=== PATIENT | male | born 1980 | race American Indian/Alaskan Native ===

== ENCOUNTER 2019-01-09 17:52 | Emergency (ER) | payer OTHER ==
--- NOTE | 2019-01-09 18:23 | Emergency Department Report ---
Blank Doc - Documentation Documentation: This is a 38-year-old male that presents with right eye pain and irritation. This initial assessment/diagnostic orders/clinical plan/treatment(s) is/are subject to change based on patient's health status, clinical progression and re- assessment by fellow clinical providers in the ED. Further treatment and workup at subsequent clinical providers discretion. Patient/guardians urged not to elope from the ED as their condition may be serious if not clinically assessed and managed. Initial orders include: 1- Patient sent to [facility] for further evaluation and treatment 2- visual acuity 3- he lamp/tonopen
[2019-01-09 18:24] VITALS: BP 114/67
--- NOTE | 2019-01-09 21:10 | Emergency Department Report ---
ED General Adult HPI - General Chief complaint: Eye Problems Stated complaint: R EYE PAIN Time Seen by Provider: 01/09/19 18:20 Source: patient Mode of arrival: Ambulatory Limitations: No Limitations - History of Present Illness Initial comments: Patient is a 38-year-old AA male with no past medical history presents to the ED, no acute onset persistent painful swollen nontraumatic right medial eyelids for the last 5 days. Patient states that in the last 2 days the swelling and pain have worsened, and now has purulent discharge. Patient denies change in vision, dizziness, headache, nausea, vomiting, traumatic injury, nasal and sinus congestion, fever, chills, cough or sore throat. MD Complaint: right eyelid pain and swelling -: Sudden, days(s) (5) Location: eyes (RIGHT EYELIDS) Radiation: non-radiation Severity scale (0 -10): 5 Quality: burning, aching, sharp Consistency: constant Improves with: none Worsens with: none Associated Symptoms: denies other symptoms, rash (right eyelids). denies: confusion, chest pain, diaphoresis, fever/chills, headaches, loss of appetite, nausea/vomiting, shortness of breath, syncope, weakness Treatments Prior to Arrival: none - Related Data Previous Rx's Medication Instructions Recorded Last Taken Type Ibuprofen [Motrin] 800 mg PO Q8HR PRN #20 tablet 01/09/19 Unknown Rx Sulfamethoxazole/Trimethoprim 1 each PO Q12H #20 tablet 01/09/19 Unknown Rx [Bactrim DS TAB] Allergies Allergy/AdvReac Type Severity Reaction Status Date / Time No Known Allergies Allergy Unverified 01/09/19 17:53 ED Review of Systems ROS: Stated complaint: R EYE PAIN Other details as noted in HPI Constitutional: denies: chills, fever Eyes: eye pain (right), other (swollen painful rash on right eyelids). denies: eye discharge, vision change ENT: denies: ear pain, throat pain Respiratory: denies: cough, shortness of breath, wheezing Cardiovascular: denies: chest pain, palpitations Endocrine: no symptoms reported Gastrointestinal: denies: abdominal pain, nausea, diarrhea Genitourinary: denies: urgency, dysuria Musculoskeletal: denies: back pain, joint swelling, arthralgia Skin: rash (erythematous swollen painful rash on right eyelids medially), change in color (mildly erythematous rash on right eyelids). denies: lesions Neurological: denies: headache, weakness, paresthesias Psychiatric: denies: anxiety, depression Hematological/Lymphatic: denies: easy bleeding, easy bruising ED Past Medical Hx - Past Medical History Previous Medical History?: No Hx Hypertension: No - Surgical History Past Surgical History?: No - Social History Smoking Status: Current Every Day Smoker Substance Use Type: None - Medications Home Medications: Home Medications Medication Instructions Recorded Confirmed Last Taken Type Ibuprofen [Motrin] 800 mg PO Q8HR PRN #20 tablet 01/09/19 Unknown Rx Sulfamethoxazole/Trimethoprim 1 each PO Q12H #20 tablet 01/09/19 Unknown Rx [Bactrim DS TAB] ED Physical Exam - General Limitations: No Limitations General appearance: alert, in no apparent distress - Head Head exam: Present: atraumatic, normocephalic, normal inspection - Eye Eye exam: Present: normal appearance, PERRL, EOMI, other (swollen mildly erythematous tender right medial eyelids). Absent: periorbital swelling, periorbital tenderness Pupils: Present: normal accommodation - ENT ENT exam: Present: normal exam, normal orophraynx, mucous membranes moist, TM's normal bilaterally, normal external ear exam - Neck Neck exam: Present: normal inspection, full ROM. Absent: tenderness - Respiratory Respiratory exam: Present: normal lung sounds bilaterally. Absent: respiratory distress, wheezes, rales, stridor, chest wall tenderness, accessory muscle use - Cardiovascular Cardiovascular Exam: Present: regular rate, normal rhythm, normal heart sounds. Absent: systolic murmur, diastolic murmur, rubs, gallop - GI/Abdominal GI/Abdominal exam: Present: soft, normal bowel sounds. Absent: guarding, rebound, hyperactive bowel sounds, hypoactive bowel sounds, organomegaly, mass, bruit - Rectal Rectal exam: Present: deferred - Extremities Exam Extremities exam: Present: normal inspection, full ROM, normal capillary refill. Absent: pedal edema, joint swelling - Back Exam Back exam: Present: normal inspection, full ROM. Absent: CVA tenderness (L), muscle spasm, paraspinal tenderness, vertebral tenderness - Neurological Exam Neurological exam: Present: alert, oriented X3, CN II-XII intact, normal gait - Psychiatric Psychiatric exam: Present: normal affect, normal mood - Skin Skin exam: Present: warm, dry, intact, rash (erythematous swollen tender rash on medial right eyelid), erythema ED Course Vital Signs 01/09/19 18:23 Temperature 98 F Pulse Rate 74 Respiratory 16 Rate Blood Pressure 114/67 O2 Sat by Pulse 98 Oximetry - Reevaluation(s) Reevaluation #1: 01/09/19 21:15 Patient is alert and oriented 3 and is not in distress. Patient was discharged home on oral antibiotics and pain medications, and advised to follow-up with his primary care physician in 7-10 days for reevaluation or return to the ED immediately if symptoms get worse. Patient's symptoms have consistent with acute blepharitis from the initial stye. ED Medical Decision Making - Medical Decision Making Patient is alert and oriented 3 and is not in distress. Patient was discharged home on oral antibiotics and pain medications, and advised to follow-up with his primary care physician in 7-10 days for reevaluation or return to the ED immediately if symptoms get worse. Patient's symptoms have consistent with acute blepharitis from the initial stye. - Differential Diagnosis Acute blepharitis of right eyelid; Stye; facial cellulitis Critical care attestation.: If time is entered above; I have spent that time in minutes in the direct care of this critically ill patient, excluding procedure time. ED Disposition Clinical Impression: Blepharitis of eyelid of right eye Qualifiers: Blepharitis type: unspecified type Eyelid: both upper and lower Qualified Code(s): H01.00A - Unspecified blepharitis right eye, upper and lower eyelids Disposition: TO HOME OR SELFCARE Is pt being admited?: No Does the pt Need Aspirin: No Condition: Stable Instructions: Blepharitis (ED), Stye (ED) Additional Instructions: Take medications, drink plenty of fluids and follow-up with her primary care physician in 7-10 days for reevaluation. Return to the ED immediately if symptoms get worse. Prescriptions: Sulfamethoxazole/Trimethoprim [Bactrim DS TAB] 1 each PO Q12H #20 tablet Ibuprofen [Motrin] 800 mg PO Q8HR PRN #20 tablet PRN Reason: Pain , Severe (7-10) Referrals: [facility] MD DAVION [Primary Care Provider] - 3-5 Days Time of Disposition: 21:09 Print Language: PORTUGUESE
== END 2019-01-09 21:31 | disposition home or self-care (01) ==
LOC: ED 17:52
DX: H01.00A Unspecified blepharitis right eye, upper and lower eyelids (principal); F17.200 Nicotine dependence, unspecified, uncomplicated; Z79.1 Long term (current) use of non-steroidal anti-inflammatories (NSAID)
CPT/HCPCS: 99283

== ENCOUNTER 2019-01-17 21:17 | Emergency (ER) | payer SELFPAY ==
[2019-01-17 21:39] VITALS: BP 110/65
[2019-01-17] MEDS ORDERED: BENADRYL PO ONE (22:42)
[2019-01-17] MEDS ORDERED: DECADRON IM ONE (22:42)
[2019-01-17] MEDS ORDERED: PEPCID PO ONE (22:42)
[2019-01-17] MEDS ORDERED: TETRACAINE 0.5% OU PRN (22:43)
--- NOTE | 2019-01-18 00:28 | Emergency Department Report ---
ED Eye Problem HPI - General Chief complaint: Eye Problems Stated complaint: BILATERAL EYE IRRITATION/PAIN Time Seen by Provider: 01/17/19 22:30 Source: patient Mode of arrival: Ambulatory Limitations: No Limitations - History of Present Illness Initial comments: Patient is a 38-year-old -[place] male in the past medical history presents to the ED complaining of acute onset of left eye pain, redness, tearing and swelling eyeball after some debris at work and it into his eye. The patient states that the pain is persistent as well as tearing. Patient denies change in vision, nausea, vomiting, headache, chest pain, shortness of breath, nasal and sinus congestion, fever or chills or neck pain. MD chief complaint: eye pain (left eye pain), eye redness (left ), foreign body (sensation), other (tearing) -: Sudden, hour(s) (12), This morning Onset Description: sudden Location: left eye Place: work If Injury: none Eye Symptoms: burning, redness, pain, foreign body sensation, itching, photophobia Severity: severe Severity scale (0 -10): 7 If Pain, Quality: sharp, burning, aching Consistency: constant Context: other (Unknown) Associated Symptoms: none Treatments Prior to Arrival: irrigated eye, OTC eye drops - Related Data Patient Tetanus UTD: Yes Previous Rx's Medication Instructions Recorded Last Taken Type Ibuprofen [Motrin] 800 mg PO Q8HR PRN #20 tablet 01/09/19 Unknown Rx Sulfamethoxazole/Trimethoprim 1 each PO Q12H #20 tablet 01/09/19 Unknown Rx [Bactrim DS TAB] Ibuprofen [Motrin] 800 mg PO Q8HR PRN #20 tablet 01/18/19 Unknown Rx Ranitidine HCl [Zantac] 150 mg PO Q12H #20 tablet 01/18/19 Unknown Rx Tobramycin/Dexamethasone [Tobradex 1 - 2 drop OP Q4HR #5 ml 01/18/19 Unknown Rx Eye Drops 0.3/0.1%] diphenhydrAMINE [Benadryl CAP] 25 mg PO Q6HR PRN #30 capsule 01/18/19 Unknown Rx Allergies Allergy/AdvReac Type Severity Reaction Status Date / Time No Known Allergies Allergy Unverified 01/09/19 17:53 ED Review of Systems ROS: Stated complaint: BILATERAL EYE IRRITATION/PAIN Other details as noted in HPI Constitutional: denies: chills, fever Eyes: eye pain (left ), other (Erythematous painful left eye with tearing). denies: eye discharge, vision change ENT: denies: ear pain, throat pain Respiratory: no symptoms reported. denies: cough, orthopnea, shortness of breath, SOB with exertion, SOB at rest, wheezing Cardiovascular: denies: chest pain, palpitations Endocrine: no symptoms reported Gastrointestinal: denies: abdominal pain, nausea, diarrhea Genitourinary: denies: urgency, dysuria Musculoskeletal: denies: back pain, joint swelling, arthralgia Skin: denies: rash, lesions Neurological: denies: headache, weakness, paresthesias Psychiatric: denies: anxiety, depression Hematological/Lymphatic: denies: easy bleeding, easy bruising ED Past Medical Hx - Past Medical History Previous Medical History?: No Hx Hypertension: No - Surgical History Past Surgical History?: No - Social History Smoking Status: Current Every Day Smoker Substance Use Type: None - Medications Home Medications: Home Medications Medication Instructions Recorded Confirmed Last Taken Type Ibuprofen [Motrin] 800 mg PO Q8HR PRN #20 tablet 01/09/19 Unknown Rx Sulfamethoxazole/Trimethoprim 1 each PO Q12H #20 tablet 01/09/19 Unknown Rx [Bactrim DS TAB] Ibuprofen [Motrin] 800 mg PO Q8HR PRN #20 tablet 01/18/19 Unknown Rx Ranitidine HCl [Zantac] 150 mg PO Q12H #20 tablet 01/18/19 Unknown Rx Tobramycin/Dexamethasone [Tobradex 1 - 2 drop OP Q4HR #5 ml 01/18/19 Unknown Rx Eye Drops 0.3/0.1%] diphenhydrAMINE [Benadryl CAP] 25 mg PO Q6HR PRN #30 capsule 01/18/19 Unknown Rx ED Physical Exam - General Limitations: No Limitations General appearance: alert, in no apparent distress - Head Head exam: Present: atraumatic, normocephalic, normal inspection - Eye Eye exam: Present: PERRL, EOMI, conjunctival injection (left), other (erythematous irritated left conjunctiva) Pupils: Present: normal accommodation - ENT ENT exam: Present: normal exam, normal orophraynx, mucous membranes moist, TM's normal bilaterally, normal external ear exam - Neck Neck exam: Present: normal inspection, full ROM - Respiratory Respiratory exam: Present: normal lung sounds bilaterally. Absent: respiratory distress, wheezes, rales, rhonchi, stridor, chest wall tenderness, prolonged expiratory - Cardiovascular Cardiovascular Exam: Present: regular rate, normal rhythm, normal heart sounds. Absent: systolic murmur, diastolic murmur, rubs, gallop - GI/Abdominal GI/Abdominal exam: Present: soft, normal bowel sounds. Absent: tenderness, guarding, rebound, hyperactive bowel sounds, hypoactive bowel sounds, organomegaly - Rectal Rectal exam: Present: deferred - Extremities Exam Extremities exam: Present: normal inspection, full ROM, normal capillary refill - Back Exam Back exam: Present: normal inspection, full ROM. Absent: tenderness, CVA tenderness (R), CVA tenderness (L), muscle spasm, vertebral tenderness - Neurological Exam Neurological exam: Present: alert, oriented X3, CN II-XII intact, normal gait, reflexes normal - Psychiatric Psychiatric exam: Present: normal affect, normal mood - Skin Skin exam: Present: warm, dry, intact, normal color. Absent: rash ED Course Vital Signs 01/17/19 01/17/19 21:24 21:36 Temperature 97.5 F L 98 F Pulse Rate 94 H 96 H Respiratory 18 18 Rate Blood Pressure 118/76 110/65 O2 Sat by Pulse 98 99 Oximetry - Reevaluation(s) Reevaluation #1: 01/18/19 00:20 Patient is alert and oriented 3 and is not in distress. Patient was treated in the ED with steroid injections, Benadryl as well as Pepcid, and also tetracaine 0.5% ophthalmic solution for pain. This is all findings patient's irritated left eye is likely due to an allergic reaction to an unknown object possibly some debris at work. On reevaluation, patient feeling better and sleeping in the room in no acute distress. ED Medical Decision Making - Medical Decision Making Patient is alert and oriented 3 and is not in distress. Patient was treated in the ED with steroid injections, Benadryl as well as Pepcid, and also tetracaine 0.5% ophthalmic solution for pain. This is all findings patient's irritated left eye is likely due to an allergic reaction to an unknown object possibly some debris at work. On reevaluation, patient feeling better and sleeping in the room in no acute distress. - Differential Diagnosis Allergic conjunctivitis; Acute eye pain; Acute conjunctivitis Critical care attestation.: If time is entered above; I have spent that time in minutes in the direct care of this critically ill patient, excluding procedure time. ED Disposition Clinical Impression: Allergic conjunctivitis of left eye, Acute pain in left eye Disposition: TO HOME OR SELFCARE Is pt being admited?: No Does the pt Need Aspirin: No Condition: Stable Instructions: Conjunctivitis (ED) Additional Instructions: Take medications as advised, applied the topical eyedrops following the instructions provided. Follow up with your primary care physician in 2 days for reevaluation. Return to the ED immediately if symptoms get worse. Prescriptions: diphenhydrAMINE [Benadryl CAP] 25 mg PO Q6HR PRN #30 capsule PRN Reason: swelling Ibuprofen [Motrin] 800 mg PO Q8HR PRN #20 tablet PRN Reason: Pain , Severe (7-10) Tobramycin/Dexamethasone [Tobradex Eye Drops 0.3/0.1%] 1 - 2 drop OP Q4HR #5 ml Ranitidine HCl [Zantac] 150 mg PO Q12H #20 tablet Referrals: VINCE JOHNSON MD [Staff Physician] - 3-5 Days Forms: Work/School Release Form(ED) Time of Disposition: 00:31 Print Language: SAMI
== END 2019-01-18 01:18 | disposition home or self-care (01) ==
LOC: ED 21:17
DX: H10.12 Acute atopic conjunctivitis, left eye (principal); I10 Essential (primary) hypertension; Z79.899 Other long term (current) drug therapy
CPT/HCPCS: 96372; 99283; J1100